=== PATIENT | male | born 1960 | race Caucasian/White ===

== ENCOUNTER → 2023-09-24 12:00 | Outpatient (REF) | payer BC, SELFPAY | LOC: DHSLP 12:00 | PROVIDERS: ATTENDING PHYSICIAN Internal Medicine Cardiovascular Disease; FAMILY PHYSICIAN Family Medicine | DX: G47.30 Sleep apnea, unspecified (principal); R06.83 Snoring | CPT/HCPCS: 95800 ==

== ENCOUNTER → 2023-10-22 10:05 | Outpatient (REF) | payer BC, SELFPAY | LOC: CLAB 10:05 | PROVIDERS: ATTENDING PHYSICIAN Otolaryngology | DX: H66.93 Otitis media, unspecified, bilateral (principal); H66.3X3 Other chronic suppurative otitis media, bilateral | CPT/HCPCS: 87070; 87077; 87186 ==

== ENCOUNTER 2024-07-15 12:11 | Emergency (ER) | payer BC, MEDICARE, SELFPAY ==
[2024-07-15 12:37] VITALS: BMI 27.7
--- NOTE | 2024-07-15 12:50 | ED.GENMED ---
History of Present Illness
General
Chief Complaint: Heart Rate Problem
Source: patient and spouse
Exam Limitations: none
Time Seen by Provider: 07/15/24 12:37
Nursing documentation reviewed up to this point in time: agreed with
History of Present Illness
History of Present Illness:
64-year-old male presents to the emergency department due to heart palpitations. He feels them intermittently. Last night he noticed he was short of breath and feeling palpitations. 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 Calvert, who recommended
that he come to the emergency department. He has a history of atrial fibrillation in the past, does not take anticoagulation. He is taking albuterol. He denies any other medications, they will call and stated he was taking Lopressor 12.5 mg twice
a day.
Past History
Past History
ED Past Medical History: Arrthythmia and Asthma
ED Past Surgical History: None
Social History
Tobacco: Former smoker
Alcohol: None
Drug: None
Personal:
Living: with family
Review of Systems
Review of Systems
Allergies reviewed?: Yes
All Other Systems: Not applicable
Constitutional: Reports no symptoms
EENT: Reports no symptoms
Respiratory: Reports trouble breathing
Cardiac: Reports palpitations
ABD/GI: Reports no symptoms
: Reports no symptoms
Musculoskeletal: Reports no symptoms
Skin: Reports no symptoms
Neurological: Reports no symptoms
Endocrine: Reports no symptoms
Hematologic/Lymphatic: Reports no symptoms
Psychiatric: Reports no symptoms
Phy Exam
Physical Exam
Physical Exam:
Physical Exam
General: no apparent distress, not acutely ill
Neck: supple. no meningeal signs. normal posterior pharynx
Heart: s1/s2 tachycardia, irregular rhythm, no murmur. equal radial
pulses.
HEENT: Pupils equal round reactive to light, EOMI
Lungs: no acute respiratory distress. clear bilaterally
Abdomen: normal bowel sounds. not tender. no CVAT
Neuro: alert and oriented. no focal neurological deficits cranial nerves II through XII intact
Skin: no rash
Psychiatric: well kept. interactive and cooperative
Extremities: no edema. no calf tenderness. negative homans. good distal pulses
Course
Orders/Labs/Results
Orders:
Orders
07/15/24 12:11
Electrocardiogram (*1) Urgent
Reason for Study: Palpitations
EKG- Treatment ONCE
07/15/24 12:39
Complete Blood Count/With Diff Urgent
Comprehensive Metabolic Panel Urgent
NT-proBNP Urgent
Comment: ADD
PT/INR [Prothrombin Time] Urgent
Troponin I Urgent
07/15/24 12:48
Add On- LAB Urgent
Tests Added?: bnp
Lactated Ringers [Lr] 500 ml IV BOLUS
CR Chest Portable - 1 View Urgent
Comment:
Reason For Exam: short of breath
Reason Study Needs to be Portable: Patient Unstable
07/15/24 12:50
Diltiazem 125 mg/125 ml Nss [Cardizem] 125 mg in 125 ml IV NOW
Initial dose in mg/hr, then titrate:: 5
Titrate to keep:: Heart rate 80-100 bpm
Titrate by mg/hr:: 5 mg/hr
Frequency of titrations (minutes):: 15
Maximum dose in mg/hr:: 15
Diltiazem HCl [Cardizem] 5 mg IV NOW STA
07/15/24 12:58
0.9% Sodium Chloride 500 ml [Nss] 500 ml IV BOLUS
07/15/24 13:50
EKG [Electrocardiogram (*1)] Urgent
Reason for Study: Atrial Fibrillation
EKG- Treatment ONCE
07/15/24 14:41
Apixaban [Eliquis] 5 mg PO STAT STA
Abnormal Lab Results
07/15/24
12:39
WBC 11.8 H 10^3/uL
(4.8-10.8)
Abs Immat Gran (auto) 0.1 H 10^3/uL
(0-0.05)
Absolute Neuts (auto) 7.8 H 10^3/uL
(1.4-6.5)
Absolute Monos (auto) 1.0 H 10^3/uL
(0.1-0.6)
Glucose 105 H mg/dl
(70-99)
07/15/24 12:39
07/15/24 12:39
Vital Signs
Initial and Last Documented VS:
Initial Vital Signs
Temp Pulse Resp Pulse Ox
97.7 F 112 16 100
07/15/24 12:14 07/15/24 12:14 07/15/24 12:14 07/15/24 12:14
Last Documented Vital Signs
Temp Pulse Resp BP Pulse Ox
97.7 F 70 13 100/73 98
07/15/24 12:14 07/15/24 14:45 07/15/24 14:45 07/15/24 14:15 07/15/24 14:45
MDM/Problems Addressed
Differential Diagnosis Includes:
Paroxysmal atrial fibrillation
MDM/Problems Addressed:
64-year-old male with paroxysmal atrial fibrillation, spontaneous converted. Patient placed on Eliquis and consultation with Dr. Reeves, cardiology. Patient will start Eliquis, but due to borderline blood pressure, will hold off on metoprolol.
Chronic conditions affecting care: Arrhythmia
Acute Exacerbation and/or Progression of Chronic Illness: Arrhythmia
*Radiology
Radiology exam reviewed: radiology read reviewed (Chest x-ray shows mild interstitial lung disease)
*Pulse Oximetry
Patient hypoxic: no
*EKG
Interpreted by ED Provider?: Yes
EKG Intrepretation Date: 07/15/24
EKG Intrepretation Time: 12:13
Interpretation: abnormal
Comparison EKG: changes noted
Heart Rate: 112
Rate: tachycardiac
Rhythm: a-fib
[place]: normal axis
Interval: normal interval
QRS Pattern: normal QRS
Ischemia: no ischemia
*Business Development Engineer Interpretation
Rate: normal
Interpretation: normal
Heart Rate: 68
Rhythm: sinus
*Critical Care Note
Total Time (30-74mins, 75-104mins- exclusive of procedures): 30
comment:
Critical care statement: A total of 30 minutes of critical care time was provided for this patient. This includes management of unstable vital signs, evaluation of the patient at bedside, reviewing the patient's pertinent medical records, discussion
with consultants, review of old EKGs and review of pertinent medical records. This time with separate from time utilized to perform the aforementioned documented procedures
Patient Management
Social determinants of health affecting care: Living situation
Discussion with other providers: Import/Export Freight Forwarder (Cardiology, Dr. Peterson)
Escalation/DeEscalation of care consider admission/obs:
Admit not indicated
Update Note
Update Note:
Patient had a hypotension and rapid atrial fibrillation, which did improve with IV fluids. He spontaneously converted after receiving IV fluids.
ED Attending Note
-
Portions of this chart may have been created with voice recognition software.� Occasional wrong word or��sound alike� substitutions may have occurred due to the inherent limitations of voice recognition software.
Discharge Plan
Departure
Patient Disposition: Home (Routine Discharge)
Date of Disposition: 07/15/24
Time of Disposition: 14:41
Patient with high blood pressure during this ER visit?: No
Condition: Good
Discharge Problem:
Atrial fibrillation with rapid ventricular response
Instructions: Atrial Fibrillation (DC)
Prescriptions:
New
Eliquis 5 mg tablet
5 mg PO BID Qty: 60 0RF
metoprolol succinate 25 mg tablet extended release 24 hr
12.5 mg PO DAILY Qty: 30 0RF
No Action
aspirin 325 mg Tablet
325 mg PO DAILYPRN PRN (Reason: mild pain)
albuterol sulfate [ProAir HFA] 90 mcg/actuation Hfa Aerosol Inhaler
2 puff INHALATION R Q6HPRN PRN (Reason: asthma)
Referrals:
Joaquim Pollock DO [Family Provider] -
Vin Calvert DO [Active] - Call in 1-3 days for appt
Interventions
Interventions:
*Risk Screen - Suicide Last Done: 07/15/24 12:14
*General Assessment Last Done: 07/15/24 12:38
*Neglect/Abuse Screening Last Done: 07/15/24 12:14
ED- Fall Risk Assessment Last Done: 07/15/24 12:38
*ED COVID-19 Vaccine History Last Done: 07/15/24 12:38
*Nursing Disposition Last Done: 07/15/24 15:00
ED- Cardiac Assessment Last Done: 07/15/24 12:38
ED- Pulmonary Assessment Last Done: 07/15/24 12:38
Discharge Date and Time
Discharge Date/Time: 07/15/24 15:00
Print Language: ARMENIAN
[2024-07-15 12:59] LABS: % Basophils 0.5 % (0-2); % Eosinophils 1.4 % (0-6); % Immature Granulocytes 0.5 % (0-0.5); % Monocytes 8.2 % (1.7-9.3); % Neutrophils 66.4 % (42.2-75.2); Absolute Basophils 0.1 10^3/uL (0-0.2); Absolute Eosinophils 0.2 10^3/uL (0-0.7); Absolute Immature Granulocytes 0.1 10^3/uL (0-0.05); Absolute Lymphocytes 2.7 10^3/uL (1.2-3.4); Absolute Neutrophils 7.8 10^3/uL (1.4-6.5); Hematocrit 48.6 % (39.0-52.0); Hemoglobin 16.3 g/dL (13.0-18.0); Mean Corp Hgb Conc. 33.5 g/dL (33.0-37.0); Mean Corpuscular Hgb 29.2 pg (27.0-31.0); Mean Corpuscular Volume 87.1 fL (80.0-94.0); Mean Platelet Volume 9.4 fL (7.4-10.4); Nucleated Red Blood Cells % 0 % (-); Platelet Count 307 10^3/uL (130-400); Red Blood Cell Count 5.58 10^6/uL (4.70-6.10); Red Cell Dist. Width 13.2 % (11.5-14.5); White Blood Cell Count 11.8 10^3/uL (4.8-10.8)
[2024-07-15 13:00] VITALS: BP 90/78
[2024-07-15] MEDS: NSS 500 IV (13:06)
[2024-07-15 13:08] LABS: PT 12.7 Sec (11.4-14.6)
[2024-07-15 13:10] LABS: ALT (SGPT) 36 U/L (0-50); AST (SGOT) 24 U/L (17-59); Albumin 4.8 g/dl (3.5-5.0); Alkaline Phosphatase 95 U/L (38-126); Blood Urea Nitrogen 16 mg/dl (9-20); Calcium 9.4 mg/dl (8.4-10.2); Carbon Dioxide 22 mmol/L (22-30); Chloride 103 mmol/L (98-107); Estimated Creatinine Clearance 90 ml/min; Glucose 105 mg/dl (70-99); Potassium 4.8 mmol/L (3.5-5.1); Sodium 140 mmol/L (135-145); Total Bilirubin 0.9 mg/dl (0.2-1.3); eGFR > 60.00
[2024-07-15 13:15] VITALS: BP 106/89
[2024-07-15 13:22] LABS: NT-proBNP 1070 pg/ml; Troponin I < 0.012 ng/ml
[2024-07-15 13:30] VITALS: BP 97/73
[2024-07-15 13:45] VITALS: BP 99/84
[2024-07-15 14:00] VITALS: BP 102/72
[2024-07-15 14:15] VITALS: BP 100/73
[2024-07-15] MEDS: ELIQUIS 5 MG PO (14:55)
== END 2024-07-15 15:00 | disposition home or self-care (01) ==
LOC: EMR 12:11
PROVIDERS: Emergency Medicine; EMERGENCY PHYSICIAN Emergency Medicine; FAMILY PHYSICIAN Family Medicine
DX: I48.91 Unspecified atrial fibrillation (principal); J45.909 Unspecified asthma, uncomplicated; Z87.891 Personal history of nicotine dependence; I95.9 Hypotension, unspecified
CPT/HCPCS: 96360; 99291; 71045; 80053; 83880; 84484; 85025; 85610; 93005

== ENCOUNTER → 2024-08-05 09:07 | Outpatient (REF) | payer MEDICARE, BC, SELFPAY | LOC: RCS 09:07 | PROVIDERS: ATTENDING PHYSICIAN Nurse Practitioner; FAMILY PHYSICIAN Family Medicine | DX: I48.91 Unspecified atrial fibrillation (principal); R06.02 Shortness of breath | CPT/HCPCS: 93017; 93350 ==

== ENCOUNTER → 2025-02-22 09:45 | Outpatient (REF) | payer MEDICARE, BC, SELFPAY ==
[2025-02-22 10:51] LABS: INR 1.10; PT 14.5 Sec (11.4-14.6)
[2025-02-22 11:02] LABS: ALT (SGPT) 35 U/L (0-50); AST (SGOT) 22 U/L (17-59); Albumin 4.6 g/dl (3.5-5.0); Alkaline Phosphatase 86 U/L (38-126); Blood Urea Nitrogen 11 mg/dl (9-20); Calcium 8.6 mg/dl (8.4-10.2); Carbon Dioxide 27 mmol/L (22-30); Chloride 105 mmol/L (98-107); Glucose 108 mg/dl (70-99); Magnesium 2.1 mg/dl (1.6-2.3); Potassium 4.4 mmol/L (3.5-5.1); Sodium 141 mmol/L (135-145); Total Protein 7.9 g/dl (6.3-8.2); eGFR > 60.00
[2025-02-22 12:04] LABS: Hematocrit 43.6 % (39.0-52.0); Hemoglobin 14.5 g/dL (13.0-18.0); Mean Corp Hgb Conc. 33.3 g/dL (33.0-37.0); Mean Corpuscular Volume 88.6 fL (80.0-94.0); Nucleated Red Blood Cells % 0 % (-); Platelet Count 280 10^3/uL (130-400); Red Cell Dist. Width 12.7 % (11.5-14.5)
== END ==
LOC: SDSPAT 09:45
PROVIDERS: ATTENDING PHYSICIAN Internal Medicine Cardiovascular Disease; FAMILY PHYSICIAN Family Medicine
DX: I48.91 Unspecified atrial fibrillation (principal)
CPT/HCPCS: 36415; 75572; 80053; 83735; 85025; 85610; 86850; 86900; 86901; 93005; 93306; Q9967

== ENCOUNTER 2025-03-11 08:40 | Day surgery (SDC) | payer MEDICARE, BC, SELFPAY ==
[2025-02-22 09:59] VITALS: BMI 28.0
[2025-03-11] VITALS (10 sets, daily range): BP systolic 91–128; BP diastolic 69–87
--- NOTE | 2025-03-11 10:04 | ITS.CL.ABL ---
Whipped Topping Mixer - Ablation
Ablation
Procedure Report:
Primary Care: Dr. Joaquim Pollock
Procedure Date: 03/11/2025
Patient History:
Patient is a pleasant 64-year-old male with a past medical history significant for GERD, asthma, elevated coronary artery calcium score, family history of CAD, and symptomatic paroxysmal atrial fibrillation.
See H&P for complete details.
Indication:
Symptomatic paroxysmal atrial fibrillation
Arrhythmia Specific History:
Prior Medical Therapies for Rate and Rhythm Control:
X Beta-lilly
[ ] Calcium channel-lilly
[ ] Amiodarone
[ ] Dronederone
[ ] Sotalol
X Flecainide
[ ] Dofetilide
[ ] Options limited by bradycardia
[ ] Options limited by comorbid renal disease
Prior Procedural Therapies for AF/AFL:
[ ] Cardioversion
[ ] Pulmonary Vein Isolation
[ ] Posterior Wall Isolation
[ ] Additional lines (Specify)
[ ] Surgical Yuan-MAZE or PVI (Specify)
Procedure Performed:
X AF ablation procedure (07599) -- includes LA/CS pacing, trans-septal, 3D mapping, + ICE
[ ] +IV drug (08649)
[ ] +Other Arrhythmia (03425)
[ ] +Other AF Line/ablation (55914)
Risks and expected recovery has been explained in detail. Alternative options have been explored, and in a shared-decision making fashion we have decided that this was the most appropriate procedure.
Method
NPO status confirmed. Grounding pad applied. Defibrillator pads applied. Continuous surface ECG, pulse oximetry, and blood pressure were monitored. Procedure was performed under general anesthesia, with anesthesia services.
Both groins were clipped, prepped with Chloraprep, and draped in sterile fashion. Time out was called. Local anesthesia administered with bupivacaine. The right femoral vein was accessed for catheter placement, using ultrasound guidance (images
saved to record), micro-puncture needle/wire, and modified seldinger technique. 3 sheaths were placed. The following catheters were used:
[ ] Tacticath SE (D/F Curve) ablation catheter
X Viewflex 9Fr ICE catheter
X Inquiry decapolar 6Fr diagnostic catheter
[ ] CRD Hex 6Fr
X FlexCath Contour 10 Fr with PulseSelect PFA Catheter
X Advisor HD Grid Mapping Catheter, SE
[ ] Acuson AcuNav 8 Fr ICE catheter
[ ]Other: [ ]
Intracardiac ultrasound (ICE) was carefully advanced into the right atrium to guide sheath placement over a J-wire, catheter placement, guide trans-septal puncture, identify potential complications, identify anatomic structures and ensure proper
contact between ablation catheter and tissue.
Heparin was given prior to trans-septal puncture. Heparin was given to achieve and maintain a target ACT of 300-400 seconds throughout the procedure.
Trans-septal access was performed under ICE guidance. The trans-septal puncture was performed with a SafeSept wire through a Brockenbrough needle assembly through the steerable sheath. The wire was visualized as it entered the LSPV and system
advanced under ICE guidance and fluoroscopy into the LA. The Brockenbrough needle assembly, SafeSept wire and sheath dilator were removed under negative pressure. LA pressure was measured and recorded.
ICE and 3D mapping was performed to identify relevant cardiac structures. A careful 3D map was created to assess for regions of low-voltage and abnormal electrogram signals using HD grid mapping catheter and PulseSelect catheter. Additional mapping
was performed as outlined below.
Prior to ablation, glycopyrrolate was provided. PulseSelect catheter was advanced over J-wire to the ostium of each vein. Pulmonary vein isolation was performed with ostial and antral lesions in a circumferential manner. Contact was visualized via
EAM, ICE, fluoroscopy, and EGM signals.
Following completion of ablation lesions, a post-ablation voltage/activation map was performed in sinus rhythm. Entrance and exit block were confirmed for each vein.
Catheter and sheath were removed from the left atrium and post-ablation intracardiac echo evaluation was consistent with pre-ablation with no changes and no pericardial effusion and there is no left atrial thrombus or left ventricle thrombus seen.
Electrophysiology study was performed. Hemostasis was obtained with Vascade for each sheath and with manual pressure. Protamine was used for reversal.
Estimated Blood Loss
5 mL
Complications
None
Fluoroscopy: 2.9 minutes; 10.60 mGy; DAP 1.26
LA Pressure: Pre 5 mmHg, post 6 mmHg
Baseline Intervals:
Rhythm: SR
WI: 163 ms
QRS: 93 ms
QT: 433 ms
QTc: 425 ms
Post-Procedure Intervals:
WI: 159 ms
QRS: 85 ms
QT: 410 ms
QTc: 415 ms
AVWB: 320 ms
AVNERP/AERP: 600/260 ms
Recommendations
- Bedrest with straight-leg precautions as ordered
- Anticipate same day discharge if patient meeting clinical metrics
- Resume home medications as indicated
- Ok to resume anticoagulation tonight if patient and groin sites stable
- PPI daily for 30 days
- Plan for follow-up in office as scheduled
Vin Calvert DO, FACC, RS
Clinical Cardiac Promotions Team Leader
cc: Dr. Joaquim Pollock
[2025-03-11 11:51] LABS: ACT-LR - POC 268 Seconds (116-155)
[2025-03-11 12:10] LABS: ACT-LR - POC 340 Seconds (116-155)
[2025-03-11 12:36] LABS: ACT-LR - POC 303 Seconds (116-155)
[2025-03-11 12:55] LABS: ACT-LR - POC 305 Seconds (116-155)
[2025-03-11 13:04] LABS: ACT-LR - POC 153 Seconds (116-155)
[2025-03-11] MEDS: ANESTHETIC LOZENGE 1 LOZENGE PO (14:47)
--- NOTE | 2025-03-11 16:42 | W.PN.UPDATE ---
Update Note
Progress Note Update
64 yo WM s/p PVI (same day). He denies cp, sob, rayshawn diet, voiding, EKG SR, R fem site c/d/i, soft. He will resume Eliquis tonight, He will resume metoprolol. Activity restrictions reviewed. He will f/u Dr. Calvert in 2 mo. He is for d/c home after
4pm.
== END 2025-03-11 16:07 | disposition home or self-care (01) ==
LOC: CATH 08:40
PROVIDERS: ATTENDING PHYSICIAN Internal Medicine Cardiovascular Disease; FAMILY PHYSICIAN Family Medicine
DX: I48.0 Paroxysmal atrial fibrillation (principal); E78.5 Hyperlipidemia, unspecified; J45.20 Mild intermittent asthma, uncomplicated; K21.9 Gastro-esophageal reflux disease without esophagitis; Z87.891 Personal history of nicotine dependence; Z82.49 Family history of ischemic heart disease and other diseases of the circulatory system; Z79.82 Long term (current) use of aspirin; Z79.01 Long term (current) use of anticoagulants; Z00.6 Encounter for examination for normal comparison and control in clinical research program
CPT/HCPCS: C1732; C1894; C1730; C1769; C1892; C1733; C1766; 85347; 86900; 86901; 93005; 93656; C1760